=== PATIENT | male | born 1970 | race Caucasian/White ===

== ENCOUNTER 2018-08-23 05:50 | Inpatient (IN) ==
[2018-08-23 06:15] LABS: Basophils % 0.1 % (0.1-2.0); Eosinophils # 0.1 K/mm3 (0.0-0.4); Eosinophils % 0.3 % (0.1-12.0); Hemoglobin 17.9 g/dL (14.1-18.0); Lymphocytes # 1.2 K/mm3 (0.7-4.5); Lymphocytes % 6.7 % (10-50); Mean Corpuscular HGB Conc 35.1 g/dL (31.8-35.4); Mean Corpuscular Hemoglobin 32.6 pg (27.0-31.2); Mean Corpuscular Volume 92.9 fl (80-94); Mean Platelet Volume 8.7 fl (7.4-10.4); Monocytes # 0.7 K/mm3 (0.1-1.0); Monocytes % 3.8 % (1.7-9.3); Neutrophils # 15.7 K/mm3 (1.8-7.8); Platelet Count 307 K/mm3 (142-424); Red Blood Count 5.49 M/mm3 (4.60-6.20); Red Cell Distribution Width 12.8 % (11.5-17.5); White Blood Count 17.7 K/mm3 (4.8-10.8)
[2018-08-23 06:39] LABS: Alanine Aminotransferase 44 U/L (12-78); Albumin Level 3.9 gm/dL (3.4-5.0); Alkaline Phosphatase 117 U/L (46-116); Amylase 72 U/L (25-115); Anion Gap 27.4 mEq/L (5-15); Aspartate Amino Transferase 17 U/L (15-37); Bilirubin,Direct 0.1 mg/dL (0.0-0.2); Bilirubin,Indirect 0.8 mg/dL (0.0-0.9); Bilirubin,Total 0.9 mg/dL (0.2-1.0); Blood Urea Nitrogen 13 mg/dL (7-18); C-Reactive Protein 8.2 mg/L (0.0-0.9); Carbon Dioxide 13 mmol/L (21.0-32.0); Chloride 92 mmol/L (98-107); Potassium 4.4 mmoL/L (3.5-5.1); Sodium 128 mmol/L (136-145); Total Protein,Serum 8.4 gm/dL (6.4-8.2)
--- NOTE | 2018-08-23 06:39 | Emergency Department Note ---
ED Disposition Clinical Impression: Obesity (BMI 30-39.9) Pancreatitis, acute Qualifiers: Pancreatitis type: unspecified pancreatitis type Acute pancreatitis complication: no infection or necrosis Qualified Code(s): K85.90 - Acute pancreatitis without necrosis or infection, unspecified DKA (diabetic ketoacidoses) Qualifiers: Diabetes mellitus type: type 2 Diabetes mellitus complication detail: without coma Qualified Code(s): E11.10 - Type 2 diabetes mellitus with ketoacidosis without coma Disposition: Admitted As Inpatient Condition on Discharge: Serious - Critical Care Critical Care Time: No Attestation: On 08/23/18, the high probability of a clinically significant, sudden or life threatening deterioration of the following system(s) required my full and direct attention, intervention and personal management. The time I documented below is in addition to time spent performing reported procedures but includes the following listed in this critical care notation. Medical Decision Making - Medical Records Medical records reviewed: Yes: I reviewed the patient's medical records. - Khanh Inquiry Pt receiving controlled substance: No Vital Signs: 08/23/18 06:17 08/23/18 06:46 08/23/18 07:20 Temperature 98.0 F Temperature Source Oral Pulse Rate [Left] 112 H 114 H 122 H Respiratory Rate 22 Blood Pressure [Right Arm] 166/88 H 168/88 H 147/97 H Blood Pressure Mean [Right Arm] 114 114 113 Blood Pressure Source [Right Arm] Automatic Cuff Blood Pressure Position [Right Arm] Supine Supine 02 Sat by Pulse Oximetry 96 98 97 Oxygen Delivery Method Room Air 08/23/18 07:49 Temperature Temperature Source Pulse Rate [Left] 122 H Respiratory Rate Blood Pressure [Right Arm] Blood Pressure Mean [Right Arm] Blood Pressure Source [Right Arm] Blood Pressure Position [Right Arm] 02 Sat by Pulse Oximetry 96 Oxygen Delivery Method Room Air - Lab Data Lab results reviewed: Yes: I reviewed the patient's lab results. Lab Results 08/23/18 06:00: WBC 17.7 H D, RBC 5.49, Hgb 17.9, Hct 51.0, MCV 92.9, MCH 32.6 H , MCHC 35.1, RDW 12.8, Plt Count 307, MPV 8.7, Neut % (Auto) 89.0 H, Lymph % (Auto) 6.7 L, [place] % (Auto) 3.8, Eos % (Auto) 0.3, Baso % (Auto) 0.1, Neut # (A uto) 15.7 H, Lymph # (Auto) 1.2, [place] # (Auto) 0.7, Eos # (Auto) 0.1, Baso # (Auto) 0.0, Total Counted 100, Neutrophils % (Manual) 89 H, Band Neutrophils % 2.0, Lymphocytes % (Manual) 6 L, Monocytes % (Manual) 3, Platelet Estimate Normal 08/23/18 06:00: Sodium 128 L, Potassium 4.4, Chloride 92 L, Carbon Dioxide 13 L D, Anion Gap 27.4 H, BUN 13, Creatinine 1.13, Estimated Creat Clear 148, Estimated GFR 70, Est GFR ( Amer) 84, Glucose 414 H*, Calcium 8.6 D, Total Bilirubin 0.9, Direct Bilirubin 0.1, Indirect Bilirubin 0.8, AST 17, ALT 44, Alkaline Phosphatase 117 H, Troponin I < 0.02, C-Reactive Protein 8.2 H, T otal Protein 8.4 H, Albumin 3.9, Amylase 72, Lipase 8866 H 08/23/18 06:00: Acetone Level Large 08/23/18 07:04: POC Glucose 442 H* 08/23/18 07:05: Specimen Source Left radial, O2 % Ra, ABG pH 7.26 L, ABG pCO2 25.8 L, ABG pO2 94.9, ABG HCO3 11.3 L, ABG Total CO2 12.1 L, ABG O2 Saturation 97, ABG Base Excess -15.8 L, Tristin Test Acceptable Result diagrams: 08/23/18 06:00 08/23/18 06:00 Orders (Tests/Meds): ED MEDICATIONS Generic Name Dose Route Start Last Admin Trade Name Freq PRN Reason Stop Dose Admin Insulin Human Regular 100 unit 101 mls @ 1.01 mls/hr 08/23/18 07:00 08/23/18 07:07 / Sodium Chloride IV 09/22/18 06:59 1.01 mls/hr .Q25H FRANTZ Administration Protocol 1 UNITS/HR Discontinued Medications Generic Name Dose Route Start Last Admin Trade Name Freq PRN Reason Stop Dose Admin Famotidine 20 mg 08/23/18 05:57 08/23/18 06:16 Pepcid 20mg/2ml Vial IV 08/23/18 05:58 20 mg ONCE ONE Administration Sodium Chloride 1,000 mls @ 999 mls/hr 08/23/18 06:00 08/23/18 06:16 Sod Chlor 0.9% 1000ml Bag IV 08/23/18 07:00 999 mls/hr .Q1H1M FRANTZ Administration Insulin Human Regular 5 unit 08/23/18 06:52 08/23/18 07:07 Humulin R Insulin 100 Units/Ml 10ml Vial IVP 08/23/18 06:53 5 unit ONCE ONE Administration Ketorolac Tromethamine 30 mg 08/23/18 05:57 08/23/18 06:16 Toradol 30mg/Ml Vial IV 08/23/18 05:58 30 mg ONCE ONE Administration Metoclopramide HCl 10 mg 08/23/18 05:57 08/23/18 06:16 Reglan 10mg/2ml Vial IVP 08/23/18 05:58 10 mg ONCE ONE Administration Morphine Sulfate 4 mg 08/23/18 07:03 08/23/18 07:07 Morphine 4mg/Ml Syringe IV 08/23/18 07:04 4 mg ONCE ONE Administration Ondansetron HCl 4 mg 08/23/18 05:58 08/23/18 06:16 Zofran 4mg/2ml Vial IV 08/23/18 05:59 4 mg ONCE ONE Administration Ondansetron HCl 4 mg 08/23/18 06:56 08/23/18 07:01 Zofran 4mg/2ml Vial IV 08/23/18 06:57 4 mg ONCE ONE Administration ORDERS Category Date Time Status Blood alcohol [Ethyl Alcohol] Stat Lab 08/23/18 06:00 Received Complete Blood Count Auto Diff Stat Lab 08/23/18 06:00 Results Erythrocyte Sedimentation Rate Stat Lab 08/23/18 06:00 Results - Radiology Data #1 Image(s): Chest Image Reviewed: Yes I reviewed the patient's radiology image Preliminary Findings: Normal/NAD - CT Data CT Scan: Abdomen, Pelvis Time Received: 08:[address] Reviewed: Yes: I have viewed the radiologist's interpretation Preliminary Findings: Abnormal (see report) - ECG Data Tracing #1 Arrhythmias present: sinus tach Ischemic changes: non-specific ST-T wave changes - Physician Consults Physician Consulted: hayley Reason -: Admission Nausea/Vomiting/Diarrhea HPI - General Chief complaint: Abdominal Pain Stated complaint: Epigastric Pain Time Seen by Provider: 08/23/18 06:20 Mode of Arrival: EMS Source of Information: Patient, EMS, Medical Record Limitations: No Limitations Description of Symptoms (Recalled from ER Triage Doc. by RN): Pt c/o severe upper abd pain - History of Present Illness HPI Narrative: pt present with upper abd pain which started yesterday - pain is new and started after his ed visit yesterday - he drinks etoh every other day - no melena and nausea but no vomiting - no tob complaint: nausea, abdominal pain Onset (ago): day(s) Associated Abdominal Pain: Yes Location of pain: epigastric Severity: moderate Associated symptoms: denies other symptoms - Related Data Home Medications Medication Instructions Recorded Confirmed Amlodipine Besylate [Amlodipine 10 mg PO DAILY 08/22/18 08/23/18 10mg Tab] Aspirin 81 mg PO DAILY 08/22/18 08/23/18 Benazepril HCl 20 mg PO DAILY 08/22/18 08/23/18 Fluticasone Propionate [Flonase 2 spr NS DAILY 08/22/18 08/23/18 50mcg nasal spray 16gm] Furosemide [Furosemide 20mg Tab] 20 mg PO DAILY 08/22/18 08/23/18 Omeprazole [Omeprazole 20mg 20 mg PO DAILY 08/22/18 08/23/18 Capsule] hydroCHLOROthiazide [HCTZ 25mg 25 mg PO DAILY 08/22/18 08/23/18 tab] Allergies Allergy/AdvReac Type Severity Reaction Status Date / Time No Known Allergies Allergy Verified 08/23/18 06:23 [facility] History - Hepatitis A Screen Drug use history?: No High risk sexual behaviors?: No History of sexually transmitted infection?: No Currently employed?: No Childcare worker?: No Do you have indoor plumbing?: Yes Do you have electricity?: Yes Attestation statement:: This patient has been screened for Hepatitis A risk factors. I have reviewed the patient's past medical history: Yes Medical History: Reports:: Diabetes Mellitus Type 1 Denies:: Diabetes Mellitus Type 2 - Social History Smoking Status: Current every day smoker Tobacco Type: cigarettes # Packs/Day (cigarettes): 1 Alcohol Intake: current Alcohol Intake Frequency:: 3 or more drinks per day Substance Use Type: marijuana Occupational Status: other - Psychiatric History Expresses thoughts of harming self/others: None Suicide Plan Description: No Plan ROS Obtained: Yes All systems reviewed & no additional complaints - Constitutional Constitutional: Denies fever(s) - Eyes Eyes: Denies change in vision - ENT Ears, Nose, Mouth, and Throat: Denies sore throat - Cardiovascular Cardiovascular: Denies chest pain - Respiratory Respiratory: No cough - Gastrointestinal Gastrointestingal: Reports: as per HPI, abdominal pain, nausea. Denies: black, tarry stools, vomiting - Genitourinary Male Genitourinary: Denies hematuria - Musculoskeletal Musculoskeletal: Denies joint pain - Integumentary/Breasts Skin/Breast: Denies rash - Neurologic Neurologic: Denies convulsions, Reports restless legs Physical Exam - General General appearance: alert, obese - Head Head exam: normocephalic - Eye Eye exam: Present: PERRL, EOMI. Absent: scleral icterus - ENT ENT exam: Present: mucous membranes dry - Neck Neck exam: Present: trachea midline - Respiratory Respiratory exam: Present: normal lung sounds bilaterally, respiratory distress - Cardiovascular Cardiovascular exam: Present: regular rate, systolic murmur - Abdominal Exam Abdominal exam: Present: soft, tenderness Abdominal tenderness: Present: epigastrium, moderate - Extremities Exam Extremities exam: Absent: calf tenderness - Neurological Exam Neurological exam: Present: alert, oriented X3, CN II-XII intact - Psychiatric Psychiatric exam: Present: normal affect - Skin Skin exam: Absent: rash
[2018-08-23 06:52] LABS: Glucose 414 mg/dL (74-106)
[2018-08-23 06:54] LABS: Calcium 8.6 mg/dL (8.5-10.1)
[2018-08-23 06:57] LABS: Lymphocytes % 6 % (10-50); Monocytes % 3 % (2-9); Neutrophils % 89 % (42-76); Total Cells Counted 100
[2018-08-23 07:12] LABS: Lipase 8866 u/L (73-393)
[2018-08-23 07:15] LABS: ABG Base Excess -15.8 mmol/L (-2.4-2.3); ABG HCO3 11.3 mmhg (22.0-26.0); ABG Oxygen Saturation 97 % (90-100); ABG PCO2 25.8 mmhg (35.0-45.0); ABG PH 7.26 mmol/L (7.35-7.45); ABG PO2 94.9 mmhg (80-100); ABG TCO2 12.1 mmhg (23-27)
[2018-08-23 07:17] LABS: Allen's Test Acceptable; Oxygen RA %
[2018-08-23 07:57] LABS: Erythrocyte Sedimentation Rate 40 mm/hr (0-15)
--- NOTE | 2018-08-23 09:25 | History & Physical Report ---
*Admission Date: 08/23/18 *Chief complaint: epigastric abdominal pain *History of present illness: Mr. Payne is a 48-year-old male patient of Dr. Sommer with only a history of hypertension, hyperlipidemia, and intermittent asthma. His states approximately 3 days ago his vision became blurry and he was unable to see clearly. He presented to the emergency room yesterday morning around 8:30am and his glucose was almost 500. He had never been formally diagnosed as a diabetic and was given some insulin and discharged and told to make a follow-up appointment with his primary care physician. He got home and drank a diet Dr. Christensen and around 12:30 PM he began having excruciating epigastric abdominal pain that radiated into his back. He thus presented back to the emergency room for evaluation. His glucose was still elevated and he was found to have a pancreatitis and to be in DKA. Of note the patient has been a heavy drinker and he smokes. His states he drinks a 12 pack a day. He has not had any alcohol since Monday. He is still currently in the emergency room at this time. He states his abdominal pain is slightly better than when he presented to the ER. [facility] History I have reviewed the patient's past medical history: Yes Medical History: Reports:: Asthma, Diabetes Mellitus Type 2, Hyperlipidemia, Hypertension *Have you ever received a pneumonia vaccine?: No *Have you received a flu vaccine this season?: Yes Other Surgeries: Yes: No Previous Surgery - *Social History Smoking Status: Current every day smoker Tobacco Type: cigarettes # Packs/Day (cigarettes): 1 Alcohol Intake: current Alcohol Intake Frequency:: 3 or more drinks per day Substance Use Type: marijuana *Occupational Status:: other *Travel in the last 8 weeks: None - Psychiatric History Expresses thoughts of harming self/others: None Suicide Plan Description: No Plan Family Hx:: Coronary Artery Disease Review of Systems - Constitutional Reports fatigue, Reports weakness - Eyes Reports blurry vision, Reports change in vision - ENT Reports dizziness, Denies headache(s) - *Cardiovascular Denies chest pain, Denies irregular heart rhythm - *Respiratory Denies cough, Denies shortness of breath - *Gastrointestinal Reports abdominal pain (epigastric), Reports nausea, Denies loose stools, Denies vomiting - *Genitourinary Denies difficulty urinating, Denies painful urination - *Musculoskeletal Denies joint pain - *Neurologic Reports dizziness, Reports restless legs, Denies seizure-like activity, Denies unsteadiness, Denies headache(s) Meds Home Medications Medication Instructions Recorded Confirmed Type Amlodipine Besylate [Amlodipine 10 mg PO DAILY 08/22/18 08/23/18 History 10mg Tab] Aspirin 81 mg PO DAILY 08/22/18 08/23/18 History Benazepril HCl 20 mg PO DAILY 08/22/18 08/23/18 History Fluticasone Propionate [Flonase 2 spr NS DAILY 08/22/18 08/23/18 History 50mcg nasal spray 16gm] Furosemide [Furosemide 20mg Tab] 20 mg PO DAILY 08/22/18 08/23/18 History Omeprazole [Omeprazole 20mg 20 mg PO DAILY 08/22/18 08/23/18 History Capsule] hydroCHLOROthiazide [HCTZ 25mg 25 mg PO DAILY 08/22/18 08/23/18 History tab] Allergies Allergy/AdvReac Type Severity Reaction Status Date / Time No Known Allergies Allergy Verified 08/23/18 06:23 Exam Vital signs and Labs for Last 24 Hours: Temp Pulse Resp BP Pulse Ox 98.0 F 122 H 22 147/97 H 96 08/23/18 06:17 08/23/18 07:49 08/23/18 06:17 08/23/18 07:20 08/23/18 07:49 Laboratory Results - last 24 hr 08/23/18 06:00: WBC 17.7 H D, RBC 5.49, Hgb 17.9, Hct 51.0, MCV 92.9, MCH 32.6 H , MCHC 35.1, RDW 12.8, Plt Count 307, MPV 8.7, Neut % (Auto) 89.0 H, Lymph % (Auto) 6.7 L, [place] % (Auto) 3.8, Eos % (Auto) 0.3, Baso % (Auto) 0.1, Neut # (Auto) 15.7 H, Lymph # (Auto) 1.2, [place] # (Auto) 0.7, Eos # (Auto) 0.1, Baso # (Auto) 0.0, Total Counted 100, Neutrophils % (Manual) 89 H, Band Neutrophils % 2.0, Lymphocytes % (Manual) 6 L, Monocytes % (Manual) 3, Platelet Estimate Normal, ESR 40 H 08/23/18 06:00: Sodium 128 L, Potassium 4.4, Chloride 92 L, Carbon Dioxide 13 L D, Anion Gap 27.4 H, BUN 13, Creatinine 1.13, Estimated Creat Clear 148, Estimated GFR 70, Est GFR ( Amer) 84, Glucose 414 H*, Calcium 8.6 D, Total Bilirubin 0.9, Direct Bilirubin 0.1, Indirect Bilirubin 0.8, AST 17, ALT 44, Alkaline Phosphatase 117 H, Troponin I < 0.02, C-Reactive Protein 8.2 H, Total Protein 8.4 H, Albumin 3.9, Amylase 72, Lipase 8866 H 08/23/18 06:00: Acetone Level Large 08/23/18 06:00: Plasma/Serum Alcohol 0 08/23/18 07:04: POC Glucose 442 H* 08/23/18 07:05: Specimen Source Left radial, O2 % Ra, ABG pH 7.26 L, ABG pCO2 25.8 L, ABG pO2 94.9, ABG HCO3 11.3 L, ABG Total CO2 12.1 L, ABG O2 Saturation 97, ABG Base Excess -15.8 L, Tristin Test Acceptable 08/23/18 08:01: POC Glucose 389 H* I & O for Last 24 hours: Intake & Output 08/20/18 08/21/18 08/22/18 08/23/18 11:59 11:59 11:59 11:59 Weight 286 lb - Constitutional no acute distress - *Routine HEENT Exam Head: Present: normocephalic Eye: Present: EOMI, PERRL ENT: Present: mucous membranes dry - *Routine Respiratory Exam Present: CTA bilaterally - *Routine Cardiovascular Exam Present: RRR - *Routine Abdominal Exam Present: soft, normoactive bowel sounds, tenderness (epigastric area) - *Routine Extremities Exam Absent: cyanosis, clubbing, edema - *Routine Skin Exam Present: warm. Absent: rash - *Routine Neurological Exam Present: alert, oriented X3 H&P: Result - Impressions Abdominal CT - Acute pancreatitis with phlegmonous changes CXR - No change with no acute finding Assessment and Plan (1) Pancreatitis, acute Current visit: Yes Status: Acute Qualifiers: Pancreatitis type: unspecified pancreatitis type Acute pancreatitis complication: no infection or necrosis Qualified Code(s): K85.90 - Acute pancreatitis without necrosis or infection, unspecified Category: Medical Code(s): K85.90 - Acute pancreatitis without necrosis or infection, unspecified (2) DKA (diabetic ketoacidoses) Current visit: Yes Status: Acute Qualifiers: Diabetes mellitus type: type 2 Diabetes mellitus complication detail: without coma Qualified Code(s): E11.10 - Type 2 diabetes mellitus with ketoacidosis without coma Category: Medical Code(s): E11.10 - Type 2 diabetes mellitus with ketoacidosis without coma (3) Hyperglycemia due to type 2 diabetes mellitus Current visit: No Status: Acute Qualifiers: Diabetes mellitus long goods drier insulin use: without long goods drier use Qualified Code(s): E11.65 - Type 2 diabetes mellitus with hyperglycemia Category: Medical Code(s): E11.65 - Type 2 diabetes mellitus with hyperglycemia (4) Hypertension Current visit: Yes Status: Chronic Category: Medical Code(s): I10 - Essential (primary) hypertension (5) Obesity (BMI 30-39.9) Current visit: Yes Status: Chronic Category: Medical Code(s): E66.9 - Obesity, unspecified - Assessment and plan all Dx Assessment and Plan for all problems:: Patient is still in the emergency room. He has been started on insulin as well as morphine for pain and Zofran for nausea. We will keep him n.p.o. at this time. Will discuss further care with Dr. hardy.
--- NOTE | 2018-08-23 09:31 | Progress Note ---
Internal Medicine - PN: Subj *Date: 08/23/18 *Time: 09:28 Interval history: I saw the patient in the emergency room. His history and physical is being completed by Mere López PA-C. The patient is a newly diagnosed diabetic. He was seen yesterday in the emergency room and found to have elevated blood sugars. He returns to the emergency room this morning with acute abdominal pain and is suffering from pancreatitis with elevated triglycerides. He appears also to be in DKA. He is admitted at this time for treatment. He is a smoker. He drinks beer daily. He has not had previous surgery. Exam Vital signs and Labs for Last 24 Hours: Temp Pulse Resp BP Pulse Ox 98.0 F 122 H 22 147/97 H 96 08/23/18 06:17 08/23/18 07:49 08/23/18 06:17 08/23/18 07:20 08/23/18 07:49 Laboratory Results - last 24 hr 08/23/18 06:00: WBC 17.7 H D, RBC 5.49, Hgb 17.9, Hct 51.0, MCV 92.9, MCH 32.6 H , MCHC 35.1, RDW 12.8, Plt Count 307, MPV 8.7, Neut % (Auto) 89.0 H, Lymph % (Auto) 6.7 L, [place] % (Auto) 3.8, Eos % (Auto) 0.3, Baso % (Auto) 0.1, Neut # (Auto) 15.7 H, Lymph # (Auto) 1.2, [place] # (Auto) 0.7, Eos # (Auto) 0.1, Baso # (Auto) 0.0, Total Counted 100, Neutrophils % (Manual) 89 H, Band Neutrophils % 2.0, Lymphocytes % (Manual) 6 L, Monocytes % (Manual) 3, Platelet Estimate Normal, ESR 40 H 08/23/18 06:00: Sodium 128 L, Potassium 4.4, Chloride 92 L, Carbon Dioxide 13 L D, Anion Gap 27.4 H, BUN 13, Creatinine 1.13, Estimated Creat Clear 148, Estimated GFR 70, Est GFR ( Amer) 84, Glucose 414 H*, Calcium 8.6 D, Total Bilirubin 0.9, Direct Bilirubin 0.1, Indirect Bilirubin 0.8, AST 17, ALT 44, Alkaline Phosphatase 117 H, Troponin I < 0.02, C-Reactive Protein 8.2 H, Total Protein 8.4 H, Albumin 3.9, Amylase 72, Lipase 8866 H 08/23/18 06:00: Acetone Level Large 08/23/18 06:00: Plasma/Serum Alcohol 0 08/23/18 07:04: POC Glucose 442 H* 08/23/18 07:05: Specimen Source Left radial, O2 % Ra, ABG pH 7.26 L, ABG pCO2 25.8 L, ABG pO2 94.9, ABG HCO3 11.3 L, ABG Total CO2 12.1 L, ABG O2 Saturation 97, ABG Base Excess -15.8 L, Tristin Test Acceptable 08/23/18 08:01: POC Glucose 389 H* I & O for Last 24 hours: Intake & Output 08/20/18 08/21/18 08/22/18 08/23/18 11:59 11:59 11:59 11:59 Weight 286 lb - Constitutional moderate distress - *Routine HEENT Exam ENT: Present: mucous membranes dry - *Routine Respiratory Exam Present: CTA bilaterally - *Routine Cardiovascular Exam Present: tachycardia - *Routine Abdominal Exam Present: soft, tenderness (Epigastric) - *Routine Extremities Exam Absent: edema - *Routine Neurological Exam Present: alert, oriented X3 In pain. Assessment and Plan - Assessment and plan all Dx Assessment and Plan for all problems:: ASSESSMENT: (For some reason the computer will not allow me to add assessments) 1. Diabetic ketoacidosis 2. Newly diagnosed diabetes mellitus, apparently insulin-dependent 3. Acute pancreatitis 4. Hyperlipidemia 5. Alcohol abuse 6. Tobacco abuse PLAN: see orders.
--- NOTE | 2018-08-23 11:42 | Pharmacy Consult Notes ---
[facility] Pharmacy VTE Monitoring - Patient Demographics Admission date: 08/23/18 Report Date: 08/23/18 Time: 11:42 Allergies/Adverse Reactions: Patient Allergies No Known Allergies Allergy (Verified 08/23/18 06:23) Height: 1.85 m Weight: 124.5 kg Patient Problems: Current Active Problems (Updated 08/23/18 @ 09:33 by SONALI Ortega) Pancreatitis, acute (Acute) DKA (diabetic ketoacidoses) (Acute) Obesity (BMI 30-39.9) (Chronic) Hypertension (Chronic) - VTE Risk Labs: VTE Related Lab Results Hgb 17.9 g/dL (14.1-18.0) 08/23/18 06:00 Hct 51.0 % (42.0-52.0) 08/23/18 06:00 Plt Count 307 K/mm3 (142-424) 08/23/18 06:00 BUN 13 mg/dL (7-18) 08/23/18 06:00 Creatinine 1.13 mg/dL (0.70-1.30) 08/23/18 06:00 Estimated Creat Clear 148 mL/min (50-200) 08/23/18 06:00 Was VTE Risk Assessment Performed: Yes VTE Score: 3 VTE Risk Level: Low Risk - Prophylaxis VTE Prophylaxis Ordered?: Yes Types of VTE Prophylaxis: TEDS Knee High Location of Applied Device: Bilateral Lower Extremeties
[2018-08-24 01:08] LABS: Calcium 8.3 mg/dL (8.5-10.1)
[2018-08-24 06:18] LABS: Basophils % 0.1 % (0.1-2.0); Eosinophils # 0.1 K/mm3 (0.0-0.4); Eosinophils % 0.7 % (0.1-12.0); Hematocrit 47.3 % (42.0-52.0); Lymphocytes % 6.4 % (10-50); Mean Corpuscular Hemoglobin 32.4 pg (27.0-31.2); Mean Corpuscular Volume 95.5 fl (80-94); Mean Platelet Volume 8.8 fl (7.4-10.4); Monocytes # 0.8 K/mm3 (0.1-1.0); Neutrophils % 87.8 % (37.0-80.0); Platelet Count 242 K/mm3 (142-424); Red Blood Count 4.95 M/mm3 (4.60-6.20); Red Cell Distribution Width 13.3 % (11.5-17.5); White Blood Count 15.9 K/mm3 (4.8-10.8)
[2018-08-24 06:21] LABS: Anion Gap 19.1 mEq/L (5-15); Calcium 8.3 mg/dL (8.5-10.1); Potassium 4.1 mmoL/L (3.5-5.1)
[2018-08-24 07:23] LABS: Hemoglobin 16.2 g/dL (14.1-18.0)
[2018-08-24 07:48] LABS: Lymphocytes % 7 % (10-50); Monocytes % 6 % (2-9); Neutrophils % 77 % (42-76); Total Cells Counted 100
[2018-08-24 07:49] LABS: RBC Morphology Normal
--- NOTE | 2018-08-24 09:13 | Progress Note ---
Internal Medicine - PN: Subj *Date: 08/24/18 *Time: 09:15 Interval history: Pt is sitting up at the bedside and reports feeling better than he did yesterday. His pain is improved. He remains NPO and denies any nausea or vomiting. He is voiding normally. He denies any SOB although he is mildly t achypneic. He would like to be discharged as he feels he would be more comfortable at home. His WBC remains elevated. Glucose levels have been controlled in the low 200's. His renal function remains mildly decreased. Exam Vital signs and Labs for Last 24 Hours: Temp Pulse Resp BP Pulse Ox 97.9 F 110 H 22 151/87 H 95 08/24/18 07:42 08/24/18 08:00 08/24/18 07:42 08/24/18 07:42 08/24/18 07:42 Laboratory Results - last 24 hr 08/23/18 10:01: POC Glucose 391 H* 08/23/18 10:59: POC Glucose 365 H* 08/23/18 11:13: Troponin I < 0.02 08/23/18 12:09: POC Glucose 345 H* 08/23/18 13:11: POC Glucose 293 H 08/23/18 14:03: POC Glucose 263 H 08/23/18 14:20: Troponin I < 0.02 08/23/18 15:00: POC Glucose 281 H 08/23/18 16:00: POC Glucose 207 H 08/23/18 18:02: POC Glucose 165 H 08/23/18 19:40: POC Glucose 176 H 08/23/18 22:52: POC Glucose 149 H 08/24/18 00:03: POC Glucose 172 H 08/24/18 00:35: Acetone Level Small 08/24/18 00:35: Sodium 134 L, Potassium 4.0, Chloride 101, Carbon Dioxide 18 L D , Anion Gap 19.0 H, BUN 18 D, Creatinine 1.44 H D, Estimated Creat Clear 112, Estimated GFR 53 L, Est GFR ( Amer) 64 D, Glucose 181 H D, Calcium 8.3 L 08/24/18 02:12: POC Glucose 209 H 08/24/18 04:04: POC Glucose 217 H 08/24/18 05:27: POC Glucose 201 H 08/24/18 05:54: WBC 15.9 H, RBC 4.95, Hgb 16.2, Hct 47.3, MCV 95.5 H, MCH 32.4 H , MCHC 34.0, RDW 13.3, Plt Count 242, MPV 8.8, Neut % (Auto) 87.8 H, Lymph % (Auto) 6.4 L, [place] % (Auto) 5.0, Eos % (Auto) 0.7, Baso % (Auto) 0.1, Neut # (Auto) 14.0 H, Lymph # (Auto) 1.0, [place] # (Auto) 0.8, Eos # (Auto) 0.1, Baso # (Auto) 0.0, Total Counted 100, Neutrophils % (Manual) 77 H, Band Neutrophils % 7.0, Lymphocytes % (Manual) 7 L, Monocytes % (Manual) 6, Metamyelocytes % 3.0 H, Platelet Estimate Normal, RBC Morphology Normal 08/24/18 05:54: Sodium 134 L, Potassium 4.1, Chloride 101, Carbon Dioxide 18 L, Anion Gap 19.1 H, BUN 21 H, Creatinine 1.47 H, Estimated Creat Clear 111, Estimated GFR 51 L, Est GFR ( Amer) 62, Glucose 232 H D, Calcium 8.3 L, Magnesium 2.0 08/24/18 05:54: Acetone Level Small 08/24/18 07:29: POC Glucose 232 H I & O for Last 24 hours: Intake & Output 08/21/18 08/22/18 08/23/18 08/24/18 11:59 11:59 11:59 11:59 Intake Total 2929 / 2929 Output Total 1100 / 1100 Balance 1829 / 1829 Weight 274 lb 7.608 oz 279 lb 8.738 oz - Constitutional no acute distress - *Routine HEENT Exam Head: Present: normocephalic ENT: Present: mucous membranes moist - *Routine Respiratory Exam Comments: CTAB A&P, mildly tachypneic - *Routine Cardiovascular Exam Present: RRR - *Routine Abdominal Exam Comments: BS present x 4, mildly ttp over the epigastrium, soft, obese - *Routine Extremities Exam Present: full ROM, pulses intact. Absent: edema, calf tenderness - *Routine Neurological Exam Present: alert, oriented X3, moving all extremities, normal speech. Absent: facial asymmetry Assessment and Plan (1) Pancreatitis, acute Current visit: Yes Status: Acute Qualifiers: Pancreatitis type: unspecified pancreatitis type Acute pancreatitis complication: no infection or necrosis Qualified Code(s): K85.90 - Acute pancreatitis without necrosis or infection, unspecified Category: Medical Code(s): K85.90 - Acute pancreatitis without necrosis or infection, unspecified (2) DKA (diabetic ketoacidoses) Current visit: Yes Status: Acute Qualifiers: Diabetes mellitus type: type 2 Diabetes mellitus complication detail: without coma Qualified Code(s): E11.10 - Type 2 diabetes mellitus with ketoacidosis without coma Category: Medical Code(s): E11.10 - Type 2 diabetes mellitus with ketoacidosis without coma (3) Hyperglycemia due to type 2 diabetes mellitus Current visit: No Status: Acute Qualifiers: Diabetes mellitus watermaster insulin use: without mcc use Qualified Code(s): E11.65 - Type 2 diabetes mellitus with hyperglycemia Category: Medical Code(s): E11.65 - Type 2 diabetes mellitus with hyperglycemia (4) Hypertension Current visit: Yes Status: Chronic Category: Medical Code(s): I10 - Essential (primary) hypertension (5) Obesity (BMI 30-39.9) Current visit: Yes Status: Chronic Category: Medical Code(s): E66.9 - Obesity, unspecified - Assessment and plan all Dx Assessment and Plan for all problems:: Further per Dr. Robbins.
[2018-08-24 09:48] LABS: Basophils # 0.1 K/mm3 (0-0.2); Basophils % 0.3 % (0.1-2.0); Eosinophils # 0.2 K/mm3 (0.0-0.4); Hematocrit 47.8 % (42.0-52.0); Hemoglobin 16.7 g/dL (14.1-18.0); Lymphocytes # 1.1 K/mm3 (0.7-4.5); Lymphocytes % 6.6 % (10-50); Mean Corpuscular Hemoglobin 33.4 pg (27.0-31.2); Mean Corpuscular Volume 95.4 fl (80-94); Mean Platelet Volume 9.7 fl (7.4-10.4); Monocytes # 1.3 K/mm3 (0.1-1.0); Monocytes % 8.3 % (1.7-9.3); Neutrophils # 13.2 K/mm3 (1.8-7.8); Neutrophils % 83.7 % (37.0-80.0); Platelet Count 234 K/mm3 (142-424); Red Blood Count 5.01 M/mm3 (4.60-6.20); Red Cell Distribution Width 13.2 % (11.5-17.5); White Blood Count 15.7 K/mm3 (4.8-10.8)
[2018-08-24 11:18] LABS: Albumin Level 2.7 gm/dL (3.4-5.0); Albumin/Globulin Ratio 0.8 (1.1-1.8); Anion Gap 21.7 mEq/L (5-15); Calcium 8.1 mg/dL (8.5-10.1); Globulin 3.6 gm/dl (1.3-3.2); Potassium 4.7 mmoL/L (3.5-5.1); Total Protein,Serum 6.3 gm/dL (6.4-8.2)
--- NOTE | 2018-08-24 13:11 | Procedure Note ---
[facility] Procedure Note Procedure Note:: Gastroenterology Consultation Date of Service-August 24, 2018 History of Present Illness: Mr. Payne is a 48-year-old gentleman who is here for hospitalization secondary to acute pancreatitis. The patient did come in with new onset uncontrolled diabetes and received intravenous insulin on Monday. Within an hour, the patient developed more significant abdominal pain. He came to the emergency department where he had lab work showing a lipase of 8886. His liver chemistries were essentially normal (alkaline phosphatase 117 and ALT 44). He did have leukocytosis with a white blood cell count of 17,700. The patient's CAT scan showed moderate peripancreatic inflammation, stranding and phlegmon but no significant fluid collections and certainly no necrosis. The patient does drink moderately with a 12 pack of alcohol daily. He also has been a heavy smoker. He reports mostly epigastric/periumbilical pain with nausea. Past Medical History: 1. Hypertension 2. GERD Past Surgical History: None Medications: 1. Lasix 2. Amlodipine 3. Benzapril 4. Omeprazole 5. 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 He smokes 1/2 pack of cigarettes daily and 12 pack of beer daily. Family History: Noncontributory Physical Examination: Gen.: The patient is a well-developed moderately obese individual in no acute distress HEENT: Normocephalic/atraumatic extraocular movements are intact anicteric Neck: Supple no lymphadenopathy Chest: Clear to auscultation Cardiovascular: Regular rate and rhythm Abdomen: Normoactive bowel sounds soft, moderate distention with tenderness in the periumbilical region, no rebound or guarding, no masses Extremities: No edema Labs: White blood cell count17.7, hemoglobin 17.9, hematocrit 51.1, alkaline phosphatase 117, CRP 8.2, sed rate 40, lipase 8866 Radiology: As above Impression/Plan: 1. Mild to moderate acute pancreatitis. Certainly alcohol is the most likely etiology with echo factor being cigarette smoking. Certainly hypertriglyceridemia could be an underlying factor and I do not have the levels. Insulin administration often protects the pancreas from acute pancreatitis so it is interesting that the patient developed pancreatitis after the administration of insulin. Presently, I would recommend symptomatic therapy to include pain control and intravenous fluids. I would recommend early re- administration of oral intake which may reduce prolonged hospital stay. This does not appear to be biliary pancreatitis and I have reviewed the patient's CAT scan. I do not feel that there is a need for MRCP/ERCP presently. I would check triglyceride and calcium levels and recommend tobacco/alcohol abstinence.
[2018-08-24 15:18] LABS: Anion Gap 18.8 mEq/L (5-15); Calcium 8.5 mg/dL (8.5-10.1); Potassium 3.8 mmoL/L (3.5-5.1)
[2018-08-24 21:06] LABS: Anion Gap 19.8 mEq/L (5-15); Calcium 7.9 mg/dL (8.5-10.1); Potassium 3.8 mmoL/L (3.5-5.1)
[2018-08-25 04:33] LABS: Basophils % 0.1 % (0.1-2.0); Eosinophils # 0.3 K/mm3 (0.0-0.4); Eosinophils % 2.2 % (0.1-12.0); Hematocrit 44.8 % (42.0-52.0); Hemoglobin 15.2 g/dL (14.1-18.0); Lymphocytes # 1.2 K/mm3 (0.7-4.5); Lymphocytes % 8.3 % (10-50); Mean Corpuscular HGB Conc 33.9 g/dL (31.8-35.4); Mean Corpuscular Hemoglobin 32.9 pg (27.0-31.2); Mean Corpuscular Volume 96.9 fl (80-94); Mean Platelet Volume 9.3 fl (7.4-10.4); Monocytes # 0.8 K/mm3 (0.1-1.0); Monocytes % 5.7 % (1.7-9.3); Neutrophils # 12.5 K/mm3 (1.8-7.8); Neutrophils % 83.7 % (37.0-80.0); Platelet Count 208 K/mm3 (142-424); Red Blood Count 4.62 M/mm3 (4.60-6.20); Red Cell Distribution Width 13.2 % (11.5-17.5); White Blood Count 14.9 K/mm3 (4.8-10.8)
[2018-08-25 06:21] LABS: Albumin Level 2.5 gm/dL (3.4-5.0); Albumin/Globulin Ratio 0.8 (1.1-1.8); Anion Gap 17.7 mEq/L (5-15); Bilirubin,Total 0.7 mg/dL (0.2-1.0); Calcium 7.9 mg/dL (8.5-10.1); Globulin 3.2 gm/dl (1.3-3.2); Potassium 3.7 mmoL/L (3.5-5.1); Total Protein,Serum 5.7 gm/dL (6.4-8.2)
--- NOTE | 2018-08-25 08:43 | Progress Note ---
Internal Medicine - PN: Subj *Date: 08/25/18 *Time: 08:41 Interval history: Pt states he feels better today and is anxious to go home. Ate all of his breakfast this morning. Still on insulin drip at 1 unit/hr. Exam Vital signs and Labs for Last 24 Hours: Temp Pulse Resp BP Pulse Ox 98.2 F 105 H 20 176/89 H 97 08/25/18 04:00 08/25/18 06:00 08/25/18 06:00 08/25/18 06:00 08/25/18 06:00 Laboratory Results - last 24 hr 08/24/18 09:19: WBC 15.7 H, RBC 5.01, Hgb 16.7, Hct 47.8, MCV 95.4 H, MCH 33.4 H , MCHC 35.0, RDW 13.2, Plt Count 234, MPV 9.7, Neut % (Auto) 83.7 H, Lymph % (Auto) 6.6 L, [place] % (Auto) 8.3, Eos % (Auto) 1.0, Baso % (Auto) 0.3, Neut # (Auto) 13.2 H, Lymph # (Auto) 1.1, [place] # (Auto) 1.3 H, Eos # (Auto) 0.2, Baso # (Auto) 0.1 08/24/18 09:19: Sodium 135 L, Potassium 4.7, Chloride 102, Carbon Dioxide 16 L, Anion Gap 21.7 H, BUN 21 H, Creatinine 1.02 D, Estimated Creat Clear 161, Estimated GFR 78, Est GFR ( Amer) 95 D, Glucose 209 H, Calcium 8.1 L, Total Bilirubin 1.0, AST 41 H D, ALT 34, Alkaline Phosphatase 98, Total Protein 6.3 L, Albumin 2.7 L D, Globulin 3.6 H, Albumin/Globulin Ratio 0.8 L, Amylase 29, Lipase 1828 H 08/24/18 10:00: POC Glucose 189 H 08/24/18 12:09: POC Glucose 188 H 08/24/18 14:11: POC Glucose 193 H 08/24/18 14:23: Sodium 135 L, Potassium 3.8, Chloride 102, Carbon Dioxide 18 L, Anion Gap 18.8 H, BUN 20 H, Creatinine 1.05, Estimated Creat Clear 156, Estimated GFR 76, Est GFR ( Amer) 92, Glucose 189 H, Calcium 8.5 08/24/18 16:05: POC Glucose 189 H 08/24/18 19:17: POC Glucose 166 H 08/24/18 20:30: Acetone Level Small 08/24/18 20:30: Sodium 136, Potassium 3.8, Chloride 103, Carbon Dioxide 17 L, Anion Gap 19.8 H, BUN 18, Creatinine 0.79 D, Estimated Creat Clear 207, Estimated GFR 105, Est GFR ( Amer) 127 D, Glucose 183 H, Calcium 7.9 L 08/24/18 21:00: POC Glucose 161 H 08/24/18 21:56: POC Glucose 182 H 08/24/18 23:56: POC Glucose 154 H 08/25/18 02:08: POC Glucose 180 H 08/25/18 04:01: POC Glucose 142 H 08/25/18 04:20: WBC 14.9 H, RBC 4.62, Hgb 15.2, Hct 44.8, MCV 96.9 H, MCH 32.9 H , MCHC 33.9, RDW 13.2, Plt Count 208, MPV 9.3, Neut % (Auto) 83.7 H, Lymph % (Auto) 8.3 L, [place] % (Auto) 5.7, Eos % (Auto) 2.2, Baso % (Auto) 0.1, Neut # (Auto) 12.5 H, Lymph # (Auto) 1.2, [place] # (Auto) 0.8, Eos # (Auto) 0.3, Baso # (Auto) 0.0 08/25/18 05:45: Sodium 138, Potassium 3.7, Chloride 104, Carbon Dioxide 20 L, Anion Gap 17.7 H, BUN 16, Creatinine 0.72, Estimated Creat Clear 230, Estimated GFR 117, Est GFR ( Amer) 142, Glucose 158 H, Calcium 7.9 L, Total Bilirubin 0.7, AST 25 D, ALT 31, Alkaline Phosphatase 96, Total Protein 5.7 L, Albumin 2.5 L, Globulin 3.2, Albumin/Globulin Ratio 0.8 L, Triglycerides 236 H, Cholesterol 150, LDL Cholesterol 88, VLDL Cholesterol 47 H, HDL Cholesterol 15 L , Cholesterol/HDL Ratio 10.0 H, Lipase 484 H 08/25/18 05:45: Acetone Level None detected 08/25/18 06:10: POC Glucose 151 H 08/25/18 08:03: POC Glucose 239 H I & O for Last 24 hours: Intake & Output 08/22/18 08/23/18 08/24/18 08/25/18 23:59 23:59 23:59 23:59 Intake Total 1246 / 1246 2035 / 2035 Output Total 1100 / 1100 1475 / 1475 450 / 450 Balance 146 / 146 561 / 561 -450 / -450 Weight 274 lb 7.608 oz 279 lb 8.738 oz 283 lb 1.176 oz - Constitutional no acute distress - *Routine HEENT Exam Head: Present: normocephalic Eye: Present: EOMI ENT: Present: mucous membranes moist - *Routine Neck Exam Present: supple. Absent: lymphadenopathy - *Routine Respiratory Exam Present: CTA bilaterally - *Routine Cardiovascular Exam Present: RRR - *Routine Abdominal Exam Present: soft, normoactive bowel sounds, tenderness (only minimal epigastric) - *Routine Extremities Exam Absent: cyanosis, clubbing, edema - *Routine Skin Exam Present: warm. Absent: rash - *Routine Neurological Exam Present: alert, oriented X3 Assessment and Plan (1) Pancreatitis, acute Current visit: Yes Status: Acute Qualifiers: Pancreatitis type: unspecified pancreatitis type Acute pancreatitis complication: no infection or necrosis Qualified Code(s): K85.90 - Acute pancreatitis without necrosis or infection, unspecified Category: Medical Code(s): K85.90 - Acute pancreatitis without necrosis or infection, unspecified (2) DKA (diabetic ketoacidoses) Current visit: Yes Status: Acute Qualifiers: Diabetes mellitus type: type 2 Diabetes mellitus complication detail: without coma Qualified Code(s): E11.10 - Type 2 diabetes mellitus with ketoacidosis without coma Category: Medical Code(s): E11.10 - Type 2 diabetes mellitus with ketoacidosis without coma (3) Hyperglycemia due to type 2 diabetes mellitus Current visit: No Status: Acute Qualifiers: Diabetes mellitus chcf insulin use: without chcf use Qualified Code(s): E11.65 - Type 2 diabetes mellitus with hyperglycemia Category: Medical Code(s): E11.65 - Type 2 diabetes mellitus with hyperglycemia (4) Hypertension Current visit: Yes Status: Chronic Category: Medical Code(s): I10 - Essential (primary) hypertension (5) Obesity (BMI 30-39.9) Current visit: Yes Status: Chronic Category: Medical Code(s): E66.9 - Obesity, unspecified - Assessment and plan all Dx Assessment and Plan for all problems:: Plan to chemical cell changer to sub insulin today and turn off drip. Recheck labs tomorrow.
--- NOTE | 2018-08-26 08:06 | Progress Note ---
Internal Medicine - PN: Subj *Date: 08/26/18 *Time: 08:03 Interval history: He has gradually progressed and is feeling better. He has had some abdominal discomfort this morning. He would like to be discharged. Lab work is pending. Exam Vital signs and Labs for Last 24 Hours: Temp Pulse Resp BP Pulse Ox 98.4 F 110 H 20 190/99 H 99 08/26/18 07:46 08/26/18 07:46 08/26/18 07:46 08/26/18 07:46 08/26/18 07:46 Laboratory Results - last 24 hr 08/25/18 08:03: POC Glucose 239 H 08/25/18 11:25: POC Glucose 230 H 08/25/18 16:36: POC Glucose 202 H 08/25/18 20:51: POC Glucose 186 H I & O for Last 24 hours: Intake & Output 08/23/18 08/24/18 08/25/18 08/26/18 11:59 11:59 11:59 11:59 Intake Total 2929 / 2929 593 / 593 3635 / 3635 Output Total 1600 / 1600 1425 / 1425 1900 / 1900 Balance 1329 / 1329 -832 / -832 1735 / 1735 Weight 274 lb 7.608 oz 279 lb 8.738 oz 283 lb 1.176 oz 285 lb 1.176 oz - Constitutional no acute distress - *Routine HEENT Exam Head: Present: normocephalic Eye: Present: PERRL ENT: Present: mucous membranes moist - *Routine Respiratory Exam Present: CTA bilaterally - *Routine Cardiovascular Exam Present: RRR - *Routine Abdominal Exam Present: soft, tenderness (Less) - *Routine Extremities Exam Present: edema (Trace) - *Routine Neurological Exam Present: alert, oriented X3 Assessment and Plan (1) Pancreatitis, acute Current visit: Yes Status: Acute Qualifiers: Pancreatitis type: unspecified pancreatitis type Acute pancreatitis complication: no infection or necrosis Qualified Code(s): K85.90 - Acute pancreatitis without necrosis or infection, unspecified Category: Medical Code(s): K85.90 - Acute pancreatitis without necrosis or inf ection, unspecified (2) DKA (diabetic ketoacidoses) Current visit: Yes Status: Acute Qualifiers: Diabetes mellitus type: type 2 Diabetes mellitus complication detail: without coma Qualified Code(s): E11.10 - Type 2 diabetes mellitus with ketoaci dosis without coma Category: Medical Code(s): E11.10 - Type 2 diabetes mellitus with ketoacidosis without coma (3) Hyperglycemia due to type 2 diabetes mellitus Current visit: No Status: Acute Qualifiers: Diabetes mellitus citrix systems administrator insulin use: without longterm use Qualified Code(s): E11.65 - Type 2 diabetes mellitus with hyperglycemia Category: Medical Code(s): E11.65 - Type 2 diabetes mellitus with hyperglycemia (4) Hypertension Current visit: Yes Status: Chronic Category: Medical Code(s): I10 - Essential (primary) hypertension (5) Obesity (BMI 30-39.9) Current visit: Yes Status: Chronic Category: Medical Code(s): E66.9 - Obesity, unspecified - Assessment and plan all Dx Assessment and Plan for all problems:: Possible discharge with follow-up tomorrow. He sees a physician in [place]. He also mentioned possibly following up in our office.
[2018-08-26 08:37] LABS: Basophils % 0.2 % (0.1-2.0); Eosinophils # 0.3 K/mm3 (0.0-0.4); Eosinophils % 2.5 % (0.1-12.0); Hematocrit 39.8 % (42.0-52.0); Lymphocytes % 9.5 % (10-50); Mean Corpuscular Hemoglobin 33.2 pg (27.0-31.2); Mean Corpuscular Volume 94.7 fl (80-94); Mean Platelet Volume 9.6 fl (7.4-10.4); Monocytes # 0.8 K/mm3 (0.1-1.0); Monocytes % 7.5 % (1.7-9.3); Neutrophils # 8.7 K/mm3 (1.8-7.8); Neutrophils % 80.3 % (37.0-80.0); Platelet Count 203 K/mm3 (142-424); Red Blood Count 4.21 M/mm3 (4.60-6.20); White Blood Count 10.9 K/mm3 (4.8-10.8)
[2018-08-26 08:45] LABS: Anion Gap 18.5 mEq/L (5-15); Potassium 3.5 mmoL/L (3.5-5.1)
[2018-08-26 08:53] LABS: Calcium 8.6 mg/dL (8.5-10.1)
--- NOTE | 2018-08-27 22:01 | Discharge Summary ---
General - General Admission date:: 08/23/18 Discharge date: 08/26/18 HPI HPI: Mr. Payne is a 48-year-old male patient of Dr. Sommer with only a history of hypertension, hyperlipidemia, and intermittent asthma. His states approximately 3 days ago his vision became blurry and he was unable to see clearly. He presented to the emergency room yesterday morning around 8:30am and his glucose was almost 500. He had never been formally diagnosed as a diabetic and was given some insulin and discharged and told to make a follow-up appointment with his primary care physician. He got home and drank a diet Dr. Christensen and around 12:30 PM he began having excruciating epigastric abdominal pain that radiated into his back. He thus presented back to the emergency room for evaluation. His glucose was still elevated and he was found to have a pancr eatitis and to be in DKA. Of note the patient has been a heavy drinker and he smokes. His states he drinks a 12 pack a day. He has not had any alcohol since Monday. Hospital Course Hospital Course: The patient's abdominal CT showed acute pancreatitis. His chest x-ray showed nothing acute. His lipase was elevated at 8866. He was admitted and started on an insulin drip as well as morphine for pain and Zofran for nausea. He was kept n.p.o. initially. His triglycerides were elevated. His abdominal pain continued and his abdomen was very distended, likely with an ileus. His lipase declined significantly. His glucose levels became controlled in the low 200s. A KUB was ordered. It did show an ileus with a moderate amount of feces in the right colon. Dr. Potter was consulted to see the patient. He felt that alcohol was the most likely etiology for the patient's acute pancreatitis. He also felt his hypertriglyceridemia could be an underlying factor. He recommended symptomatic therapy to include pain control and intravenous fluids. He also recommended early re-administration of oral intake. He did not feel this was a biliary pancreatitis. The patient did begin feeling better and was able to eat. His insulin drip was discontinued and he was started on subcutaneous insulin. His white blood cell count remained elevated therefore he was covered with Rocephin. His IV fluids were decreased and he was transferred to the medical floor. He began feeling better and wanted to be discharged. His glucose improved as did his WBC. He was stable to be discharged with a follow- up the next day. Objective Vital signs: Temp Pulse Resp BP Pulse Ox 98.4 F 110 H 19 190/99 H 97 08/26/18 07:46 08/26/18 07:46 08/26/18 08:11 08/26/18 07:46 08/26/18 08:11 Narrative: - Constitutional no acute distress - *Routine HEENT Exam Head: Present: normocephalic Eye: Present: EOMI, PERRL ENT: Present: mucous membranes dry - *Routine Respiratory Exam Present: CTA bilaterally - *Routine Cardiovascular Exam Present: RRR - *Routine Abdominal Exam Present: soft, normoactive bowel sounds, tenderness (epigastric area) - *Routine Extremities Exam Absent: cyanosis, clubbing, edema - *Routine Skin Exam Present: warm. Absent: rash - *Routine Neurological Exam Present: alert, oriented X3 Results Labs on day of discharge: Labs from last 24 hours 08/26/18 05:39 POC Glucose 210 H DS: Diagnosis - Discharge Diagnosis (1) Pancreatitis, acute Status: Acute (2) DKA (diabetic ketoacidoses) Status: Acute (3) Hyperglycemia due to type 2 diabetes mellitus Status: Acute (4) Hypertension Status: Chronic (5) Obesity (BMI 30-39.9) Status: Chronic Discharge Plan - Patient Discharge Instructions ACTIVITY: Limited activity DIET: low fat, low cholesterol Patient Instructions: Fat-Restricted Diet, DI for Pancreatitis, DI for Hyperglycemia -- Adult, Diabetic Ketoacidosis, DI for Diabetic Ketoacidosis - Follow up Plan Unknown provider or service follow up:: 08/26/18 08:07 The patient should be seen tomorrow either in his primary care physician's office in [place] or at [facility]. He will call. Disposition: Home, Self-Detention Medications: Home Medications Medication Instructions Recorded Confirmed Type Aspirin 81 mg PO DAILY 08/22/18 08/23/18 History Benazepril HCl 20 mg PO DAILY 08/22/18 08/23/18 History Fluticasone Propionate [Flonase 2 spr NS DAILY 08/22/18 08/23/18 History 50mcg nasal spray 16gm] Amlodipine Besylate [Norvasc 10mg 10 mg PO DAILY tab 08/26/18 Rx tablet] Cefdinir [Omnicef 300mg Capsule] 300 mg PO BID #10 cap 08/26/18 Rx Hyoscyamine Sulfate 0.125 mg PO QIDP PRN #60 tab 08/26/18 Rx Omeprazole [Omeprazole 40mg 40 mg PO DAILY #30 cap 08/26/18 Rx Capsule] Potassium Chloride [Micro-K 10mEq 10 meq PO DAILY #30 cap 08/26/18 Rx cap] Triamterene/Hydrochlorothiazid 1 each PO DAILY #30 tab 08/26/18 Rx [Maxzide 37.5 mg-25 mg Tablet] Prescriptions/Medication Reconciliation: New Amlodipine Besylate [Norvasc 10mg tablet] 10 mg PO DAILY tab Triamterene/Hydrochlorothiazid [Maxzide 37.5 mg-25 mg Tablet] 1 each PO DAILY #30 tab Omeprazole [Omeprazole 40mg Capsule] 40 mg PO DAILY #30 cap Cefdinir [Omnicef 300mg Capsule] 300 mg PO BID #10 cap Hyoscyamine Sulfate 0.125 mg PO QIDP PRN #60 tab PRN Reason: Cramping Potassium Chloride [Micro-K 10mEq cap] 10 meq PO DAILY #30 cap Continued Benazepril HCl 20 mg PO DAILY Aspirin 81 mg PO DAILY Fluticasone Propionate [Flonase 50mcg nasal spray 16gm] 2 spr NS DAILY Discontinued hydroCHLOROthiazide [HCTZ 25mg tab] 25 mg PO DAILY Amlodipine Besylate [Amlodipine 10mg Tab] 10 mg PO DAILY Omeprazole [Omeprazole 20mg Capsule] 20 mg PO DAILY Furosemide [Furosemide 20mg Tab] 20 mg PO DAILY
== END 2018-08-26 13:43 | disposition home or self-care (01) | DRG 637 ==
LOC: ER 05:50 → ICU 07:44 → 2ND 08-25 16:55
PROVIDERS: ADMIT Family Medicine; ATTEND Family Medicine
CPT/HCPCS: 36415; 71010; 71020; 71045; 71046; 74000; 74018; 74176; 80048; 80053; 80061; 80076; 81001; 82009; 82150; 82803; 82962; 83036; 83690; 83735; 84484; 85007; 85025; 85651; 86140; 93005; 96365; 96372; 96374; 96375; 96376; 99283; 99284; J2405

== ENCOUNTER 2019-10-24 07:54 | Emergency (ER) | payer MEDICAID, SELFPAY ==
--- NOTE | 2019-10-24 07:53 | ECG_ITS ---
APPROVED REPORT Exam: Resting ECG HR:95 bpm ECG Measurements Heart Rate 95 AXES CO 142 P 56 QRSd 94 QRS 30 QT 350 T 52 QTc 439 <Conclusion> Normal sinus rhythm Normal ECG Electronically signed by : Sandoval Hill, 10/24/2019 15:33:38
[2019-10-24 07:54] VITALS: BP 185/105; PULSE 91; RESP 14; TEMP 36.6; O2SAT 97; BMI 39.5
--- NOTE | 2019-10-24 08:06 | XR_ITS ---
PROCEDURE: XR CHEST 2V CLINICAL HISTORY: CP Chest pain, current smoker COMPARISON: CXR2V XR chest 2V from 08/22/2018 FINDINGS: The cardiomediastinal silhouette and pulmonary vascularity are within normal limits. The lungs are clear without infiltrates, suspicious nodules, or pleural effusions. No acute bony abnormalities. IMPRESSION: No acute findings. Dictated by: Tristin Wang MD 10/24/2019 10:29 Electronically signed by Tristin Wang MD in [place] 10/24/2019 10:29
[2019-10-24 08:12] LABS: Basophils % 0.4 % (0.1-2.0); Eosinophils # 0.2 K/mm3 (0.0-0.4); Eosinophils % 2.5 % (0.1-12.0); Hematocrit 49.4 % (42.0-52.0); Hemoglobin 17.6 g/dL (14.1-18.0); Lymphocytes # 2.4 K/mm3 (0.7-4.5); Lymphocytes % 28.5 % (10-50); Mean Corpuscular HGB Conc 35.6 g/dL (31.8-35.4); Mean Corpuscular Hemoglobin 32.9 pg (27.0-31.2); Mean Corpuscular Volume 92.3 fl (80-94); Mean Platelet Volume 8.4 fl (7.4-10.4); Monocytes # 0.6 K/mm3 (0.1-1.0); Neutrophils # 5.3 K/mm3 (1.8-7.8); Neutrophils % 61.7 % (37.0-80.0); Platelet Count 265 K/mm3 (142-424); Red Blood Count 5.35 M/mm3 (4.60-6.20); Red Cell Distribution Width 13.6 % (11.5-17.5); White Blood Count 8.6 K/mm3 (4.8-10.8)
--- NOTE | 2019-10-24 08:13 | PC.NURSE ---
notified rad of chest x ray
[2019-10-24 08:14] LABS: Chloride 100 mmol/L (98-107)
[2019-10-24 08:15] LABS: Potassium 4.3 mmoL/L (3.5-5.1); Sodium 138 mmol/L (136-145)
[2019-10-24 08:17] LABS: Blood Urea Nitrogen 14 mg/dl (9-20); Creatinine Clearance Estimated 193 mL/min (50-200); Estimated Glomerular Filt Rate 90 ml/min (>60); GFR (African American) 109 ML/MIN (>60)
[2019-10-24 08:18] LABS: Anion Gap 12.3 mEq/L (5-15); Calcium 9.2 mg/dl (8.4-10.2); Carbon Dioxide 30 mmol/L (22.0-30.0); Glucose 120 mg/dl (74-100)
[2019-10-24 08:29] LABS: NT Pro Brain Natriuretic Pep. 16.1 pg/mL (0-125)
[2019-10-24 08:31] LABS: Troponin I < 0.01 ng/ml (0.00-0.034)
--- NOTE | 2019-10-24 08:51 | [facility].EDCP ---
ED Disposition Clinical Impression: Nonspecific chest pain, Dyspepsia Disposition: Home, Self-Care Condition on Discharge: Good Instructions: DI for Atypical Chest Pain Prescriptions: Famotidine [Acid Orange Picking Supervisor] 20 mg PO BID #20 tab Transmission Status: [facility] to [facility] Referrals: Tay Sommer [Primary Care Provider] - - Critical Care Critical Care Time: No Attestation: On 10/24/19, the high probability of a clinically significant, sudden or life threatening deterioration of the following system(s) required my full and direct attention, intervention and personal management. The time I documented below is in addition to time spent performing reported procedures but includes the following listed in this critical care notation. Medical Decision Making - Medical Records Medical records reviewed: Yes: I reviewed the patient's medical records. - Khanh Inquiry Pt receiving controlled substance: No Vital Signs: 10/24/19 07:54 10/24/19 08:53 10/24/19 09:25 Temperature 98 F Temperature Source Oral Pulse Rate [Right] 91 H 101 H 64 Respiratory Rate 14 16 15 Blood Pressure [Right Arm] 185/105 H 159/98 H 163/99 H Blood Pressure Mean [Right Arm] 131 118 120 Blood Pressure Source [Right Arm] Automatic Cuff Blood Pressure Position [Right Arm] Sitting 02 Sat by Pulse Oximetry 97 100 95 Oxygen Delivery Method Room Air 10/24/19 09:33 10/24/19 10:00 Temperature Temperature Source Pulse Rate [Right] 97 H 104 H Respiratory Rate 16 20 Blood Pressure [Right Arm] 143/87 H 149/95 H Blood Pressure Mean [Right Arm] 105 113 Blood Pressure Source [Right Arm] Automatic Cuff Blood Pressure Position [Right Arm] Sitting 02 Sat by Pulse Oximetry 98 100 Oxygen Delivery Method Room Air - Lab Data Lab Results 10/24/19 08:00: WBC 8.6, RBC 5.35, Hgb 17.6, Hct 49.4, MCV 92.3, MCH 32.9 H, MCHC 35.6 H, RDW 13.6, Plt Count 265, MPV 8.4, Neut % (Auto) 61.7, Lymph % (Auto) 28.5, [place] % (Auto) 7.0, Eos % (Auto) 2.5, Baso % (Auto) 0.4, Neut # (Auto) 5.3, Lymph # (Auto) 2.4, [place] # (Auto) 0.6, Eos # (Auto) 0.2, Baso # (Auto) 0.0 10/24/19 08:00: Sodium 138, Potassium 4.3, Chloride 100, Carbon Dioxide 30, Anion Gap 12.3, BUN 14, Creatinine 0.90, Estimated Creat Clear 193, Estimated GFR 90, Est GFR ( Amer) 109, Glucose 120 H, Calcium 9.2, Troponin I < 0.01 10/24/19 08:00: NT-Pro-B Natriuret Pep 16.1 10/24/19 08:00: Lipase 69 10/24/19 10:25: Troponin I < 0.01 Result diagrams: 10/24/19 08:00 10/24/19 08:00 Orders (Tests/Meds): ED MEDICATIONS Discontinued Medications Generic Name Dose Route Start Last Admin Trade Name Freq PRN Reason Stop Dose Admin Aspirin 324 mg 10/24/19 08:06 10/24/19 08:10 Aspirin 81mg Chewable Tablet PO 10/24/19 08:07 324 mg ONCE ONE Administration ORDERS Category Date Time Status Troponin I Q3H Lab 10/24/19 14:15 Ordered ECG Request by /Nse Stat Y 10/24/19 08:06 Ordered - ECG Data Tracing #1 EKG was reviewed and 0758. Normal ventricular rate of 95 bpm. Normal AR interval, normal QRS. No ST changes. Found strep test was normal sinus rhythm Normal Sinus Rhythm: Yes - Reevaluation(s) Time: 11:01 Reevaluation #1: On reevaluation, the patient remains chest pain-free. 2- troponins. EKG does not show any changes. Patient will be given follow-up for cardiology. Given strict return precautions. Verbalized understanding. Medical Decision Narrative: This is a 49-year-old male presented to the emergency department with chest discomfort. Chronic in nature. Patient is relatively low risk for acute coronary syndrome based on heart score. EKG normal. Basic work-up initiated. Chest Pain HPI - General Chief Complaint: Chest Pain Stated Complaint: CP Time Seen by Provider: 10/24/19 08:00 Mode of Arrival: Ambulatory Limitations: No Limitations Description of Symptoms (Recalled from ER Triage Doc. by RN): Pt c/o left sided CP that he
[2019-10-24 08:53] VITALS: BP 159/98; PULSE 101; RESP 16; O2SAT 100
[2019-10-24 09:01] LABS: Lipase 69 U/L (23-300)
[2019-10-24 09:25] VITALS: BP 163/99; PULSE 64; RESP 15; O2SAT 95
[2019-10-24 09:33] VITALS: BP 143/87; PULSE 97; RESP 16; O2SAT 98
[2019-10-24 10:00] VITALS: BP 149/95; PULSE 104; RESP 20; O2SAT 100
--- NOTE | 2019-10-24 10:22 | PC.NURSE ---
Lab at bedside to collect troponin
[2019-10-24 10:59] LABS: Troponin I < 0.01 ng/ml (0.00-0.034)
[2019-10-24 11:08] VITALS: BP 150/85; PULSE 100; RESP 20; TEMP 36.8; O2SAT 98
== END 2019-10-24 11:13 | disposition home or self-care (01) ==
PROVIDERS: Emergency Medicine; Emergency Provider Emergency Medicine; PCP Family Medicine
DX: R07.89 Other chest pain (principal); R10.13 Epigastric pain; E11.65 Type 2 diabetes mellitus with hyperglycemia; J45.909 Unspecified asthma, uncomplicated; E78.5 Hyperlipidemia, unspecified; I10 Essential (primary) hypertension; F17.210 Nicotine dependence, cigarettes, uncomplicated; F12.10 Cannabis abuse, uncomplicated
CPT/HCPCS: 36415; 71046; 80048; 83690; 83880; 84484; 85025; 93005; 99284

== ENCOUNTER → 2023-03-30 08:45 | Outpatient (CLI) | payer MEDICAID, SELFPAY ==
--- NOTE | 2023-03-30 08:50 | US_ITS ---
FINAL REPORT CLINICAL HISTORY: LOCIALIZED ENLARGED LYMPH NODES FINDINGS: Limited sonographic images of the right axilla were obtained. There are multiple abnormally enlarged, hypoechoic and isoechoic masses, probably represent lymph nodes. Largest node measures up to 2.9 cm. The fatty hilum is not well visualized. IMPRESSION: Abnormally enlarged lymph nodes at the area of interest. Recommend CT to better evaluate adenopathy. Reviewed, Interpreted and Dictated by Cristi Smallwood MD Transcribed by Christine Rodriguez Authenticated and [facility]
== END ==
PROVIDERS: PCP Family Medicine; Visit Provider Nurse Practitioner Family
DX: R59.0 Localized enlarged lymph nodes (principal)
CPT/HCPCS: 76882

== ENCOUNTER → 2023-04-06 06:41 | Outpatient (CLI) | payer MEDICAID, SELFPAY ==
--- NOTE | 2023-04-06 06:44 | CT_ITS ---
FINAL REPORT TECHNIQUE: Axial images were obtained through the chest without contrast. CLINICAL HISTORY: AXILLARY LYMPHADENOPATHY SWOLLEN LYMPHNODES BILATERALLY COMPARISON: None FINDINGS: There is no mediastinal mass or adenopathy. There is no significant axillary adenopathy. The lungs are clear. The heart size is normal. There is no pericardial or pleural effusion. No suspicious infiltrate or nodule identified. Limited images of the upper abdomen demonstrate mild fatty infiltration of the liver. There is a benign cyst in the superior pole left kidney measuring up to 2.2 cm. IMPRESSION: No significant axillary adenopathy. Mild fatty liver. Benign left renal cyst. Reviewed, Interpreted and Dictated by Cristi Smallwood MD Transcribed by Linda Restrepo Authenticated and [facility]
== END ==
PROVIDERS: PCP Nurse Practitioner Family; Visit Provider Nurse Practitioner Family
DX: R59.0 Localized enlarged lymph nodes (principal)
CPT/HCPCS: 71250

== ENCOUNTER 2023-10-09 01:58 | Emergency (ER) | payer MEDICAID, SELFPAY ==
[2023-10-09 01:59] VITALS: BP 186/99; PULSE 118; RESP 18; TEMP 36.8; O2SAT 100; BMI 34.9
--- NOTE | 2023-10-09 02:09 | ED_ITS ---
Discharge Plan Disposition Patient Disposition: Home, Self-Care Prescriptions Prescriptions: No Action amlodipine 10 MG tablet 10 mg PO DAILY 0RF omeprazole 40 MG capsule,delayed release(DR/EC) 40 mg PO DAILY Qty: 30 1RF triamterene-hydrochlorothiazid 1 EACH tablet 1 each PO DAILY Qty: 30 1RF potassium chloride 10 MEQ capsule, extended release 10 meq PO DAILY Qty: 30 1RF hyoscyamine sulfate 0.125 MG tablet 0.125 mg PO QIDP PRN (Reason: Cramping) Qty: 60 0RF famotidine 20 MG tablet 20 mg PO BID Qty: 20 0RF aspirin 81 MG tablet,chewable 81 mg PO DAILY benazepril 20 MG tablet 20 mg PO DAILY fluticasone propionate 120 SPR/BOT bottle 2 spr intranasal DAILY Rx Instructions: each nostril Referrals Follow up/Referrals: Provider,Referral, MD [Primary Care Provider] - See instructions Activity Restrictions/Add. Instructions Additional Instructions/Restrictions: Please please apply erythromycin ointment 3 times a day for the next few days. If you continue to have symptoms, please return to the ER or call the local reference services head/junior architect. Clinical Impressions Clinical Impression: Corneal abrasion, left Qualifiers: Encounter type: initial encounter Qualified Code(s): S05.02XA - Injury of conjunctiva and corneal abrasion without foreign body, left eye, initial encounter Discharge ED Provider: Tony Meléndez General Adult HPI General Chief complaint: Eye Problems Stated complaint: Eye injury Time Seen by Provider: 10/09/23 02:06 Mode of Arrival: Ambulatory Source of Information: Patient Limitations: No Limitations Description of Symptoms (Recalled from ER Triage Doc. by RN): Patient presented to the ED for sawdust in his left eye with irritation. Patient states he was pruning trees when sawdust went in his eye. Sclera of eye appears red. History of Present Illness HPI narrative: 53-year-old male presents with left eye pain/irritation. He reports that he was doing yard work earlier today and got some sawdust in it. He washed it out and felt better. Later he was pruning a tree when he got something else in his eye. He has felt like something is irritating his eye since that time. Reports normal vision. Denies any pain with eye movement. Related Data Home Medications Medication Instructions Recorded Confirmed aspirin 81 mg chewable tablet 81 mg PO DAILY heart health 08/22/18 03/30/23 benazepril 20 mg tablet 20 mg PO DAILY Hypertension 08/22/18 03/30/23 fluticasone propionate 50 2 spr intranasal DAILY Allergy 08/22/18 03/30/23 mcg/actuation nasal symptoms spray,suspension Previous Rx's Medication Instructions Recorded amlodipine 10 mg tablet 10 mg PO DAILY 08/26/18 hyoscyamine sulfate 0.125 mg tablet 0.125 mg PO QIDP PRN Cramping #60 08/26/18 tabs omeprazole 40 mg capsule,delayed 40 mg PO DAILY #30 caps 08/26/18 release potassium chloride 10 mEq 10 meq PO DAILY #30 caps 08/26/18 capsule,extended release triamterene 37.5 1 each PO DAILY #30 tabs 08/26/18 mg-hydrochlorothiazide 25 mg tablet famotidine 20 mg tablet 20 mg PO BID #20 tabs 10/24/19 Allergies Allergy/AdvReac Type Severity Reaction Status Date / Time No Known Allergies Allergy Verified 03/30/23 09:57 [facility] Disclaimer: The information contained in this section may have been updated after the patient was seen, as this information can be updated by other users. Social History Smoking Status: Never smoker alcohol intake: current alcohol intake frequency: 3 or more drinks per day substance use type: marijuana current occupational status: unemployed and other Travel in the last 8 weeks: None household members: spouse and children housing: house caffeine: Yes ROS Obtained: Yes All systems reviewed & no additional complaints except as documented Physical Exam General General appearance: alert and in no apparent distress Head Head exam: atraumatic and normocephalic Eye Eye exam: Present PERRL, EOMI and other (Left eye: Conjunctival injection, no obvious foreign body.) ENT ENT exam: Present normal oropharynx and normal external ear exam Neck Neck exam: Present normal inspection and full ROM Chest Chest inspection: Present normal inspection and symmetric chest wall rise; Absent tenderness Respiratory Respiratory exam: Present normal lung sounds bilaterally; Absent respiratory distress Cardiovascular Cardiovascular exam: Present regular rate and normal rhythm Abdominal Exam Abdominal exam: Present soft; Absent distention, tenderness or guarding Extremities Exam Extremities exam: Present normal inspection; Absent edema or joint swelling Back Exam Back exam: Present normal inspection; Absent tenderness Neurological Exam Neurological exam: Present alert and oriented X3; Absent motor sensory deficit Psychiatric Psychiatric exam: Present normal affect and normal mood Skin Skin exam: Present warm, dry and normal color Lymphatic Lymphatic Findings: no adenopathy Medical Decision Making Medical Records Medical records reviewed: Yes I reviewed the patient's medical records. Khanh Inquiry Pt receiving controlled substance: No Khanh was queried for this patient: No Vital Signs: 10/09/23 01:59 10/09/23 02:31 Temperature 98.2 F 98.2 F Temperature Source Oral Oral Pulse Rate 98 H Pulse Rate [Right Brachial] 118 H Respiratory Rate 18 18 Blood Pressure 162/88 H Blood Pressure [Right Arm] 186/99 H Blood Pressure Mean [Right Arm] 128 02 Sat by Pulse Oximetry 100 Oxygen Delivery Method Room Air Room Air Lab Data Lab results reviewed: Yes I reviewed the patient's lab results. Medical Decision Narrative: 53-year-old male presents after potentially getting something in his eye while doing yard work. Complains of left eye irritation and foreign body sensation. Happened earlier today. Patient was given tetracaine with improvement of pain. On direct visualization, conjunctival injection but no obvious foreign body. Upon fluorescein staining, there is a tiny punctate area of corneal uptake, no Adrián sign, no apparent foreign body. The eye was copiously and repeatedly irrigated. No obvious foreign body removed. The patient reports that he has had some symptomatic improvement. He was given erythromycin ointment and discharged in stable condition with return precautions. Procedures Risk/Benefits of Procedure(s) Were Explained: Yes Critical Care Critical Care Time Critical Care Time: No
[2023-10-09 02:31] VITALS: BP 162/88; PULSE 98; RESP 18; TEMP 36.8; O2SAT 99
== END 2023-10-09 02:34 | disposition home or self-care (01) ==
PROVIDERS: Emergency Provider Emergency Medicine
DX: S05.02XA Injury of conjunctiva and corneal abrasion without foreign body, left eye, initial encounter (principal); W44.8XXA Other foreign body entering into or through a natural orifice, initial encounter
CPT/HCPCS: 99283

== ENCOUNTER 2024-07-17 12:17 | Outpatient (CLI) | payer MEDICAID, SELFPAY ==
--- NOTE | 2024-07-17 12:24 | XR_ITS ---
FINAL REPORT CLINICAL HISTORY: RT KNEE PAIN COMPARISON: None FINDINGS: Three views of the right knee were obtained. There is no acute fracture or dislocation. The joint spaces are intact. There is no soft tissue abnormality. IMPRESSION: No acute bony abnormality Reviewed, Interpreted and Dictated by Lucio Cadena MD Transcribed by Linda Restrepo Authenticated and [facility]
== END 2024-07-17 23:59 | disposition home or self-care (01) ==
LOC: RAD 12:19
PROVIDERS: PCP Nurse Practitioner Family; Visit Provider Nurse Practitioner Family
DX: M25.561 Pain in right knee (principal)
CPT/HCPCS: 73562